=== PATIENT | female | born 1985 | race Asian ===

== ENCOUNTER 2017-05-16 11:15 | Inpatient (IN) | payer SELFPAY ==
[~2017-05-16] VITALS: Ht 160 cm; Wt 67.1 kg
[2017-05-16 12:00] LABS: BILIRUBIN,URINE NEGATIVE (NEGATIVE); BLOOD, URINE NEGATIVE (NEGATIVE); CLARITY/URINE CLEAR (CLEAR); COLOR,URINE YELLOW (YELLOW); GLUCOSE,URINE NEGATIVE (NEGATIVE); KETONES,URINE NEGATIVE (NEGATIVE); LEUKOCYTE ESTERASE ,URINE NEGATIVE (NEGATIVE); NITRITE, URINE NEGATIVE (NEGATIVE); PH,URINE 6.5 (5.0-8.0); PROTEIN URINE NEGATIVE (NEGATIVE); UROBILINOGEN,URINE 0.2 (0.2-1.0)
[2017-05-16 12:27] LABS: BASOPHILS % (AUTO) 0.1 % (0.0-2.0); EOSINOPHILS # (AUTO) 0.1 K/uL (0.0-0.4); HEMATOCRIT 41.6 % (36-48); HEMOGLOBIN 14.2 g/dL (12.0-16.0); LYMPHOCYTES # (AUTO) 1.6 K/uL (1.0-5.5); LYMPHOCYTES % (AUTO) 22.1 % (20.5-51.5); MEAN CORPUSCULAR HEMOGLOBIN 33 pg (27-31); MEAN CORPUSCULAR HGB CONC 34 % (32-36); MEAN CORPUSCULAR VOLUME 96 fL (79.0-98.0); MONOCYTES # (AUTO) 0.7 K/uL (0.0-1.0); MONOCYTES % (AUTO) 9.4 % (1.7-9.3); NEUTROPHILS # (AUTO) 4.7 K/uL (1.8-7.7); NEUTROPHILS % (AUTO) 67.4 % (40.0-70.0); PLATELET COUNT (AUTO) 180 K/uL (130-430); RED BLOOD CELL COUNT(AUTO) 4.35 MIL/uL (4.2-6.2); RED CELL DISTRIBUTION WIDTH 12.3 % (9.0-15.0); WHITE BLOOD COUNT (AUTO) 7.1 K/uL (4.8-10.8)
[2017-05-16] MEDS ORDERED: TERBUTALINE SULFATE 1 MG/ML VIAL SUBCUT ONE (13:30)
[2017-05-16] MEDS ORDERED: MISOPROSTOL 100 MCG TABLET (CYTOTEC) PO PRN (13:30)
[2017-05-16] MEDS ORDERED: NALBUPHINE HCL 10 MG/ML AMP IVP PRN (13:30)
[2017-05-16] MEDS: LR 1,000 ML IV SCH ×2 (14:38→21:23)
[2017-05-16] MEDS ORDERED: FLU VACC QS 2017-18(36MOS+)/PF 0.5 ML/SYR SYRINGE I.M. PRN (18:15)
[2017-05-16 18:17] VITALS: BP_SYST 113
[2017-05-16] MEDS ORDERED: OXYTOCIN/NORMAL SALINE 1,000 ML IV SCH (20:19)
[2017-05-17] MEDS: LR 1,000 ML IV SCH ×2 (02:02→06:45)
[2017-05-17] MEDS ORDERED: FENT2mCg/mL-ROPIVA0.2%/NS EPID 150 ML EP ONE (02:06)
[2017-05-17] MEDS ORDERED: fentaNYL CITRATE/PF 100 MCG/2 ML AMP ONE (02:06)
[2017-05-17] MEDS ORDERED: LR 500 ML IV ONE (02:44)
[2017-05-17] MEDS ORDERED: FENT2mCg/mL-ROPIVA0.2%/NS EPID 150 ML EP SCH (02:45)
[2017-05-17] MEDS ORDERED: ePHEDrine sulfate 50 MG/ML VIAL IVP PRN (02:45)
[2017-05-17] MEDS ORDERED: fentaNYL CITRATE/PF 100 MCG/2 ML AMP IVP ONE (04:00)
[2017-05-17] MEDS ORDERED: CLINDAMYCIN 900 mg/50mL D5W 50 ML IV SCH (08:45)
[2017-05-17] MEDS ORDERED: ONDANSETRON HCL 4 MG/2 ML VIAL IVP PRN (08:45)
[2017-05-17] MEDS ORDERED: ACETAMINOPHEN 500 MG TABLET PO ONE (10:45)
[2017-05-17] MEDS ORDERED: ACETAMINOPHEN 500 MG TABLET ONE (10:48)
[2017-05-17] MEDS ORDERED: GENTAMICIN 120 mg/100 mL NS 100 ML IV ONE (11:30)
[2017-05-17] MEDS ORDERED: METHYLERGONOVINE MALEATE 0.2 MG/ML AMP IM ONE (14:35)
[2017-05-17] MEDS ORDERED: METHYLERGONOVINE MALEATE 0.2 MG/ML AMP ONE (14:38)
[2017-05-17] MEDS ORDERED: MISOPROSTOL 100 MCG TABLET (CYTOTEC) VG SCH (14:45)
[2017-05-17] MEDS ORDERED: OXYTOCIN/NORMAL SALINE 1,000 ML IV ONE (14:51)
[2017-05-17] MEDS ORDERED: OXYTOCIN/NORMAL SALINE 1,000 ML IV SCH (14:51)
[2017-05-17] MEDS ORDERED: GLYCERIN/WITCH HAZEL (TUCKS PADS) TP PRN (15:00)
[2017-05-17] MEDS ORDERED: LANOLIN 7 GM OINT. TP PRN (15:00)
[2017-05-17] MEDS ORDERED: ANUSOL 1 EA SUPP.RECT (PREPARATION H) RC PRN (15:00)
[2017-05-17] MEDS ORDERED: HYDROCORTISONE 0.5%, 28.35 GM TOPICAL CREAM TP PRN (15:00)
[2017-05-17] MEDS ORDERED: SENNOSIDES/DOCUSATE SODIUM 1 TAB TABLET(SENOKOT-S) PO PRN (15:00)
[2017-05-17] MEDS ORDERED: METHYLERGONOVINE MALEATE 0.2 MG TABLET PO PRN (15:00)
[2017-05-17] MEDS ORDERED: TEMAZEPAM 15 MG CAPSULE PO PRN (15:00)
[2017-05-17] MEDS ORDERED: HYDROcodone/ACETAMIN 5-325 MG TAB (NORCO/ VICODIN) PO PRN (15:00)
[2017-05-17] MEDS ORDERED: DOCUSATE SODIUM 100 MG CAPSULE PO PRN (15:00)
[2017-05-17] MEDS ORDERED: ACETAMINOPHEN 325 MG TABLET PO PRN (15:00)
[2017-05-17] MEDS ORDERED: MEASLES,MUMPS&RUBELLA VACC/PF 12500 UNIT/0.5 ML VIAL SUBQ PRN (15:00)
[2017-05-17] MEDS ORDERED: RHO(D) IMMUNE GLOBULIN/MALTOSE 1500 UNITS/1.3 ML (WINHRO) IM PRN (15:00)
[2017-05-17] MEDS ORDERED: DERMOPLAST SPRAY TP PRN (15:00)
[2017-05-17] MEDS: HYDROcodone/ACETAMIN 5-325 MG TAB (NORCO/ VICODIN) PO PRN (15:46)
[2017-05-17] MEDS: CLINDAMYCIN 600 mg/50mL D5W 50 ML IV SCH (18:06)
[2017-05-17] MEDS: IBUPROFEN 600 MG TABLET PO SCH ×2 (18:07→23:59)
[2017-05-17] MEDS ORDERED: LIDOCAINE MPF 1% 50 MG/5 ML AMP INJ ONE (18:22)
[2017-05-17] MEDS: GENTAMICIN 80 mg/100 mL NS 100 ML IV SCH (21:30)
[2017-05-18] MEDS: CLINDAMYCIN 600 mg/50mL D5W 50 ML IV SCH (02:00)
[2017-05-18] MEDS: GENTAMICIN 80 mg/100 mL NS 100 ML IV SCH (05:00)
[2017-05-18] MEDS ORDERED: MILK OF MAGNESIA 30 ML UDC PO ONE (05:30)
[2017-05-18] MEDS: IBUPROFEN 600 MG TABLET PO SCH ×3 (05:53→17:50)
[2017-05-18 06:38] LABS: HEMATOCRIT 29.4 % (36-48)
[2017-05-18] MEDS ORDERED: DIPH-TET-PERTUS Vaccine 0.5 ML VIAL/Tdap (ADACEL) I.M. PRN (16:15)
[2017-05-18] MEDS: HYDROcodone/ACETAMIN 5-325 MG TAB (NORCO/ VICODIN) PO PRN (21:47)
[2017-05-19] MEDS: IBUPROFEN 600 MG TABLET PO SCH ×3 (00:05→11:59)
== END 2017-05-19 14:45 | disposition home or self-care (01) | DRG 775 ==
LOC: SPU 11:28
PROVIDERS: ADMIT Obstetrics & Gynecology; ATTEND Obstetrics & Gynecology
PROC: 10D07Z6 Extraction of Products of Conception, Vacuum, Via Natural or Artificial Opening (ICD-10-PCS; principal; 2017-05-17)
PROC: 0W8NXZZ Division of Female Perineum, External Approach (ICD-10-PCS; 2017-05-17)
PROC: 3E0S3BZ Introduction of Anesthetic Agent into Epidural Space, Percutaneous Approach (ICD-10-PCS; 2017-05-17)
PROC: 00HU33Z Insertion of Infusion Device into Spinal Canal, Percutaneous Approach (ICD-10-PCS; 2017-05-17)
DX: O80 Encounter for full-term uncomplicated delivery (principal); Z37.0 Single live birth; Z3A.40 40 weeks gestation of pregnancy
CPT/HCPCS: 36415; 80170-TC; 81003; 85018-TC; 85025; 86592; 86886; 86900; 86901; 90715; J1580; J2001; J2210; J2300; J2405; J2590; J3010; J3490; J7120; Q2037